=== PATIENT | female | born 1935 | race Caucasian/White ===

== ENCOUNTER 2016-08-29 22:26 | Inpatient (IN) | payer OTHER, BC ==
[~2016-08-29] VITALS: Ht 160 cm; Wt 46.9 kg
[~2016-08-29 22:26] MED LIST: CIPRO500 MG PO; Citracal Maximum (Ca PO; Lysine,L-Lysine PO; Magnesium PO; TYLENOL PO; Ultram PO; Vicodin,Norco 5/325 PO; Vitamin D PO; ZOFRAN4 MG PO; Zocor
[2016-08-29 22:50] LABS: ADD MIUA? YES; BILIRUBIN NEGATIVE; BLOOD NEGATIVE; COLOR YELLOW ((YELLOW)); GLUCOSE (STRIP) NEGATIVE; KETONES 5; LEUKOCYTES SMALL; NITRITE NEGATIVE; PROTEIN (STRIP) 30; SPECIFIC GRAVITY 1.013 (1.000-1.030); UROBILINOGEN 0.2 MG/DL (0.2-1.0)
[2016-08-29 23:02] LABS: HEMATOCRIT 42.4 % (36.0-46.0); MCH 29.7 PG (29.0-34.0); MCHC 32.3 G/DL (30.0-36.0); MEAN PLAT.VOLUME 9.6 uM^3 (9.5-12.4); PLATELET COUNT 212 K/uL (156-360); RBC DIS.WIDTH-CV 12.6 % (11.8-14.6); RBC DIS.WIDTH-SD 42.8 % (39-53); RED BLOOD COUNT 4.61 M/uL (3.80-5.20); WHITE BLOOD COUNT 12.1 K/uL (4.1-10.2)
[2016-08-29 23:12] LABS: CHLORIDE 102 mEq/L (99-109); POTASSIUM 3.8 mEq/L (3.7-5.4); SODIUM 141 mEq/L (136-147)
[2016-08-29 23:14] LABS: GLUCOSE 124 mg/dL (70-99)
[2016-08-29 23:15] LABS: ANION GAP 11 MEQ/L (2-14)
[2016-08-29 23:16] LABS: TOTAL BILIRUBIN 1.5 mg/dL (0.0-1.0)
[2016-08-29 23:18] LABS: ALKALINE PHOSPHATASE 54 IU/L (3-129); GFR ESTIMATE (CALCULATED) > 59 mL/min/
[2016-08-29 23:19] LABS: UREA NITROGEN (BUN) 16 mg/dL (9-23)
[2016-08-29 23:21] LABS: LIPASE 20 U/L (1.0-51.0)
[2016-08-29 23:24] LABS: EPITHELIAL CELLS NONE SEEN /HPF; MUCUS NONE SEEN /LPF; RED BLOOD CELLS RARE /HPF (0-5); WHITE BLOOD CELLS 0-5 /HPF (0-5)
[2016-08-29 23:25] LABS: AMORPHOUS PHOSPHATE CRYSTALS 3+; BACTERIA RARE /HPF; CASTS NONE SEEN /LPF; CRYSTALS PRESENT; UCUL ADDED? NO
[2016-08-29] MEDS ORDERED: OXYBUTYNIN CHLOR5 MG PO (23:44)
[2016-08-29] MEDS ORDERED: ZOCOR40 MG PO (23:44)
[2016-08-29] MEDS ORDERED: PAXIL10 MG PO (23:45)
[2016-08-29] MEDS ORDERED: CALCIUM 500 +1 EACH PO (23:45)
[2016-08-30 01:48] LABS: EOSINOPHIL (%) 0.1 % (0-5); HEMATOCRIT 43.5 % (36.0-46.0); IMMATURE GRANULOCYTE (%) 0.5 % (0.0-0.7); IMMATURE GRANULOCYTE COUNT 0.1 K/uL; INSTRUMENT ABS NEUTROPHIL CT 12.2 K/uL; LYMPHOCYTE COUNT 1.2 K/uL (1.0-2.8); MCH 29.1 PG (29.0-34.0); MCHC 31.5 G/DL (30.0-36.0); MCV 92.6 FL (83-99); MEAN PLAT.VOLUME 9.8 uM^3 (9.5-12.4); MONOCYTE COUNT 0.6 K/uL (0-0.8); NEUTROPHIL (%) 86.5 % (45-76); NEUTROPHIL COUNT 12.2 K/uL (1.8-6.4); PLATELET COUNT 212 K/uL (156-360); RBC DIS.WIDTH-CV 12.7 % (11.8-14.6); RBC DIS.WIDTH-SD 43.3 % (39-53); WHITE BLOOD COUNT 14.1 K/uL (4.1-10.2)
[2016-08-30 04:19] VITALS: BP 182/73
[2016-08-30 06:43] LABS: HEMATOCRIT 38.8 % (36.0-46.0); MCH 31.6 PG (29.0-34.0); MCHC 33.8 G/DL (30.0-36.0); MCV 93.5 FL (83-99); MEAN PLAT.VOLUME 10.3 uM^3 (9.5-12.4); PLATELET COUNT 196 K/uL (156-360); RBC DIS.WIDTH-CV 12.9 % (11.8-14.6); RBC DIS.WIDTH-SD 44.3 % (39-53); RED BLOOD COUNT 4.15 M/uL (3.80-5.20); WHITE BLOOD COUNT 10.1 K/uL (4.1-10.2)
[2016-08-30 07:14] LABS: ANION GAP 11 MEQ/L (2-14); CHLORIDE 103 MEQ/L (99-109); GFR ESTIMATE (CALCULATED) > 59 mL/min/; GLUCOSE 120 mg/dL (70-99); SAMPLE HEMOLYSIS CHECK 0; SAMPLE ICTERIC CHECK 0; SAMPLE LIPEMIA CHECK 0; SODIUM 142 MEQ/L (136-147); UREA NITROGEN (BUN) 12 mg/dL (9-23)
[2016-08-30 07:17] VITALS: BP 142/67
[2016-08-30 11:11] VITALS: BP 142/73
[2016-08-30 16:11] VITALS: BP 167/79
[2016-08-30 20:29] VITALS: BP 175/84
[2016-08-30 23:59] VITALS: BP 124/81
[2016-08-31 05:00] VITALS: BP 136/62
[2016-08-31 06:19] LABS: HEMATOCRIT 36.3 % (36.0-46.0); MCH 30.8 PG (29.0-34.0); MCHC 33.3 G/DL (30.0-36.0); MCV 92.4 FL (83-99); MEAN PLAT.VOLUME 10.2 uM^3 (9.5-12.4); PLATELET COUNT 190 K/uL (156-360); RBC DIS.WIDTH-CV 12.4 % (11.8-14.6); RBC DIS.WIDTH-SD 42.2 % (39-53); RED BLOOD COUNT 3.93 M/uL (3.80-5.20); WHITE BLOOD COUNT 10.8 K/uL (4.1-10.2)
[2016-08-31 07:06] LABS: ANION GAP 11 MEQ/L (2-14); CHLORIDE 103 MEQ/L (99-109); GFR ESTIMATE (CALCULATED) > 59 mL/min/; SAMPLE HEMOLYSIS CHECK 0; SAMPLE ICTERIC CHECK 0; SAMPLE LIPEMIA CHECK 0; SODIUM 141 MEQ/L (136-147); UREA NITROGEN (BUN) 11 mg/dL (9-23)
[2016-08-31 07:11] LABS: GLUCOSE 89 mg/dL (70-99)
[2016-08-31 07:16] VITALS: BP 130/62
[2016-08-31 16:05] VITALS: BP 140/65
[2016-09-01 03:50] VITALS: BP 143/69
[2016-09-01 06:42] LABS: HEMATOCRIT 35.9 % (36.0-46.0); MCH 29.7 PG (29.0-34.0); MCHC 32.3 G/DL (30.0-36.0); MCV 92.1 FL (83-99); MEAN PLAT.VOLUME 10.5 uM^3 (9.5-12.4); PLATELET COUNT 187 K/uL (156-360); RBC DIS.WIDTH-CV 12.6 % (11.8-14.6); RBC DIS.WIDTH-SD 42.5 % (39-53); WHITE BLOOD COUNT 8.7 K/uL (4.1-10.2)
[2016-09-01 07:02] LABS: ANION GAP 7 MEQ/L (2-14); CHLORIDE 105 MEQ/L (99-109); GFR ESTIMATE (CALCULATED) > 59 mL/min/; GLUCOSE 68 mg/dL (70-99); POTASSIUM 3.8 MEQ/L (3.7-5.4); SAMPLE HEMOLYSIS CHECK 0; SAMPLE ICTERIC CHECK 0; SAMPLE LIPEMIA CHECK 0; SODIUM 141 MEQ/L (136-147); UREA NITROGEN (BUN) 11 mg/dL (9-23)
[2016-09-01 08:00] VITALS: BP 181/90
[2016-09-01 12:25] VITALS: BP 140/72
[2016-09-01 16:08] VITALS: BP 140/79
[2016-09-01 19:40] VITALS: BP 143/68
[2016-09-01 23:18] VITALS: BP 142/65
[2016-09-02 07:54] VITALS: BP 137/65
[2016-09-02 16:00] VITALS: BP 147/71
[2016-09-03 01:00] VITALS: BP 132/62
[2016-09-03 05:37] LABS: C DIFF TOXIN NEGATIVE (NEGATIVE)
[2016-09-03 06:05] LABS: PROBE CHECK PASS; SPECIMEN PROCESSING CONTROL PASS
[2016-09-03 06:56] LABS: HEMATOCRIT 35.1 % (36.0-46.0); MCH 29.5 PG (29.0-34.0); MCHC 32.5 G/DL (30.0-36.0); MCV 90.7 FL (83-99); MEAN PLAT.VOLUME 10.2 uM^3 (9.5-12.4); PLATELET COUNT 177 K/uL (156-360); RBC DIS.WIDTH-CV 12.6 % (11.8-14.6); RBC DIS.WIDTH-SD 41.5 % (39-53); RED BLOOD COUNT 3.87 M/uL (3.80-5.20); WHITE BLOOD COUNT 5.8 K/uL (4.1-10.2)
[2016-09-03 07:25] LABS: ANION GAP 6 MEQ/L (2-14); CHLORIDE 104 MEQ/L (99-109); GFR ESTIMATE (CALCULATED) > 59 mL/min/; POTASSIUM 3.3 MEQ/L (3.7-5.4); SAMPLE HEMOLYSIS CHECK 0; SAMPLE ICTERIC CHECK 0; SAMPLE LIPEMIA CHECK 0; SODIUM 143 MEQ/L (136-147); UREA NITROGEN (BUN) 6 mg/dL (9-23)
[2016-09-03 07:28] LABS: GLUCOSE 98 mg/dL (70-99)
[2016-09-03 08:27] VITALS: BP 139/59
== END 2016-09-03 13:39 | disposition home or self-care (01) | DRG 390 ==
LOC: EME 22:26 → EDOF 08-30 01:30 → 3EAST 08-30 01:30
PROVIDERS: Physician Assistant; Thoracic Surgery (Cardiothoracic Vascular Surgery)
DX: K56.60 Unspecified intestinal obstruction (principal); E78.5 Hyperlipidemia, unspecified; M19.90 Unspecified osteoarthritis, unspecified site; Z90.710 Acquired absence of both cervix and uterus; Z85.44 Personal history of malignant neoplasm of other female genital organs; K57.30 Diverticulosis of large intestine without perforation or abscess without bleeding; Z90.49 Acquired absence of other specified parts of digestive tract; D72.829 Elevated white blood cell count, unspecified
CPT/HCPCS: 74020; 74177; 80048; 80053; 81003; 83605; 83690; 85025; 85027; 87086; 87493; 99281; 99285; J2270; J2405; J3010; J7030; J7120